=== PATIENT | female | born 1965 | race Two or more races ===

== ENCOUNTER 2019-03-06 06:54 | Outpatient (CLI) | payer OTHER ==
[~2019-03-06] VITALS: Ht 160 cm; Wt 67.1 kg
[2019-03-06] VITALS (8 sets, daily range): BP systolic 94–157; BP diastolic 66–85
[2019-03-06] MEDS ORDERED: LISI10TA2 PO (07:22)
[2019-03-06] MEDS ORDERED: LIDOCAINE WITH 8.4% SOD BICARB 3 ML DISP.SYRIN. ONE (07:49)
[2019-03-06 07:52] LABS: ALBUMIN 3.8 g/dL (3.4-5.0); ALBUMIN/GLOBULIN RATIO 1.1 (1.0-1.7); CALCIUM 8.7 mg/dL (8.5-10.1); CREATININE 0.8 mg/dL (0.6-1.0); GFR 74.5; POTASSIUM 3.8 mmol/L (3.5-5.1); TOTAL BILIRUBIN 0.5 mg/dL (0.2-1.0); TOTAL PROTEIN 7.3 g/dL (6.4-8.2)
[2019-03-06 08:10] LABS: BASO % 1 % (0-3); EOS # 0.2 x10^3/uL (0.0-0.7); EOS % 5 % (0-3); HEMATOCRIT 37.9 % (36.0-47.0); HEMOGLOBIN 13.4 g/dL (12.0-15.5); LYMPH # 2.9 x10^3/uL (1.0-4.8); LYMPH % 66 % (24-48); MEAN CORPUSCULAR HEMOGLOBIN 31 pg (25-35); MEAN CORPUSCULAR HGB CONC 35 g/dL (31-37); MEAN CORPUSCULAR VOLUME 87 fL (79-100); MONO # 0.4 x10^3/uL (0.0-1.1); MONO % 8 % (0-9); NEUT # 0.9 x10^3/uL (1.8-7.7); NEUT % 20 % (31-73); PLATELET COUNT 218 x10^3/uL (140-400); RED BLOOD COUNT 4.33 x10^6/uL (3.50-5.40); RED CELL DISTRIBUTION WIDTH 12.3 % (11.5-14.5); WHITE BLOOD COUNT 4.3 x10^3/uL (4.0-11.0)
[2019-03-06] MEDS ORDERED: MIDAZOLAM HCL/PF 2 MG/2 ML VIAL. ONE (08:15)
[2019-03-06] MEDS ORDERED: fentaNYL PF VIAL 100 MCG/2 ML VIAL ONE (08:16)
[2019-03-06 08:20] LABS: PROTHROMBIN TIME PATIENT 12.7 SEC (11.7-14.0)
[2019-03-06] MEDS ORDERED: LIDOCAINE WITH 8.4% SOD BICARB 3 ML DISP.SYRIN. IJ ONE (08:30)
[2019-03-06] MEDS ORDERED: MIDAZOLAM HCL/PF 2 MG/2 ML VIAL. IV ONE (08:30)
[2019-03-06] MEDS ORDERED: fentaNYL PF VIAL 100 MCG/2 ML VIAL IV ONE (08:30)
--- NOTE | 2019-03-06 08:39 | PDOC ---
MODERATE SEDATION ASSESSMENT RISKS/ALTERNATIVES Risks/Alternatives Risks and alternatives of this type of sedation and procedure discussed with: RISK/ALTERNATIVES: Patient H & P ON CHART H & P H & P on chart and reviewed for co-morbid conditions and appropriate labs. H&P ON CHART: Yes STATUS PREG STATUS ASSESSED: Yes MEDS/ALLERGIES REVIEWED Meds/Allergies Reviewed Medications and Allergies including time and route of recently administered narcotics and sedatives. MEDS/ALLERGIES REVIEWED: Yes ASA RATING ASA RATING: II AIRWAY ASSESSMENT Airway Assessment Airway patency, oral function limitations, presence of caps, crowns, dentures, partials, and ability to extend neck assessed. AIRWAY ASSESSMENT: Yes MALLAMPATI SCORE MALLAMPATI SCORE: II PRE-SEDATION ASSESSMENT PRE-SEDATION ASSESSMENT: Yes LEANNA CALLAHAN MD Mar 06, 2019 08:39
--- NOTE | 2019-03-06 08:40 | PDOC ---
Exam Member Of [employer] Member Of [employer] None Pre-Procedure Diagnosis Pre-Procedure Diagnosis Neutropenia Post-Procedure Diagnosis Post-Procedure Diagnosis Same Procedure Performed Procedure Performed [place] Bx Type of Anesthesia Type of Anesthesia Mod Sed Estimated Blood Loss EBL: 2 Specimens Specimans aspirate and core Drain/Tubes Drains/Tubes samples given to path Condition of Patient Condition of Patient stable Disposition Disposition return to [facility]. expect discharge. LEANNA CALLAHAN MD Mar 06, 2019 08:40
[2019-03-06 13:07] LABS: % ATYL 3 % (0-0); % BANDS 1 % (0-9); % BASOS 1 % (0-3); % EOS 6 % (0-5); % LYMPHS 57 % (24-48); % MONOS 7 % (0-10); % MYELOS 1 % (0-0); % SEGS 24 % (35-66)
[2019-03-06 13:08] LABS: PLT ESTIMATE ADEQUATE (ADEQUATE)
--- NOTE | 2019-03-06 13:52 | RAD ---
CT-guided bone marrow biopsy. 03/06/2019 11:48 AM Indication: Neutropenia Discussion: The risks and benefits of the procedure, including but not limited to, bleeding and infection were discussed patient. Informed consent was obtained. The patient was brought to the CT scanner and placed in the prone position. A timeout procedure was performed. Core Finisher CT imaging of the pelvis demonstrated left ilium amenable to bone marrow biopsy. The overlying soft tissues were prepped and draped using maximum sterile barrier technique. 1% lidocaine without epinephrine was administered for local anesthesia. Under intermittent CT guidance, an OncControl needle was advanced into the bone marrow of the left iliac crest. 2 Aspirates and 1 core biopsy samples were obtained. Samples were delivered to pathology was present at the time of procedure. The needle was removed and manual pressure held to achieve hemostasis. No immediate complications were identified. The procedure was performed under conscious sedation including continuous cardiopulmonary monitoring via dedicated sedation nurse. Sedation time: 20 minutes Impression: Successful CT-guided bone marrow biopsy of the left iliac crest . PQRS Compliance Statement: One or more of the following individualized dose reduction techniques were utilized for this examination: 1. Automated exposure control 2. Adjustment of the mA and/or kV according to patient size 3. Use of iterative reconstruction technique
== END 2019-03-06 09:44 | disposition home or self-care (01) ==
LOC: INTRAD 06:54
PROVIDERS: ATTEND Internal Medicine Hematology & Oncology
DX: D70.9 Neutropenia, unspecified (principal); Z79.01 Long term (current) use of anticoagulants
CPT/HCPCS: 36415; 38222; 77012; 80053; 85025; 85610; 88184; 88185; 88237; 99152; J2250; J3010; 85007

== ENCOUNTER → 2021-02-12 | Outpatient (CLI) | payer OTHER ==
[2019-03-06 09:40] VITALS: BP 102/67
[~2021-02-12] MED LIST: LISI10TA16 PO
--- NOTE | 2021-02-12 13:34 | CARD ---
MR#: [id number] Date of Study: 02/12/2021 Ordering Physician: EDIE MOON, Referring Physician: Fazal GONZALES: Fede Morales [facility] APPROVED REPORT EXAM: Two-dimensional and M-mode echocardiogram with Doppler and color Doppler. Other Information Quality : GoodHR: 57bpm Rhythm : NSR INDICATION Palpitations RISK FACTORS Hypertension 2D DIMENSIONS Left Atrium(2D)3.2 (1.6-4.0cm)IVSd1.0 (0.7-1.1cm) Aortic Root(2D)3.0 (2.0-3.7cm)LVDd4.9 (3.9-5.9cm) LVOT Diameter2.0 (1.8-2.4cm)PWd1.0 (0.7-1.1cm) LVDs3.1 (2.5-4.0cm)FS (%) 36.2 % SV73.9 ml Aortic Valve AoV Peak Joe.121.5cm/sAoV VTI28.7cm AO Peak GR.5.9mmHgLVOT Peak Joe.104.6cm/s AO Mean GR.3mmHgAVA (VMAX)2.81cm2 Mitral Valve MV E Sgwscpvs82.7cm/sMV E Peak Gr.4mmHg MV DECEL [id number] A Vvcvukqf988.0cm/s MV E Mean Gr.2mmHgE/A Ratio0.7 Pulmonary Valve PV Peak Nmmofqio32.2cm/s Tricuspid Valve TR P. Xvugvvjy186rx/sTR Peak Gr.22mmHg Pulmonary Vein S1 Luxfwanw81.6cm/sD2 Bfvkssfa23.0cm/s LEFT VENTRICLE The left ventricle is normal size. There is normal left ventricular wall thickness. The left ventricu lar systolic function is normal and the ejection fraction is within normal range. LV ejection fractio n of 50 to 55%. There is normal LV segmental wall motion. No left ventricle thrombus noted on this st udy. There is no ventricular septal defect visualized. There is no left ventricular aneurysm. There i s no mass noted in the left ventricle. RIGHT VENTRICLE The right ventricle is normal size. There is normal right ventricular wall thickness. The right ventr icular systolic function is normal. ATRIA The left atrium size is normal. The right atrium size is normal. AORTIC VALVE The aortic valve is normal in structure and function. The aortic valve is tri-cuspid. Doppler and Col or Flow revealed no significant aortic regurgitation. There is no significant aortic valvular stenosi s. There is no aortic valvular vegetation. MITRAL VALVE The mitral valve is normal in structure and function. There is no evidence of mitral valve prolapse. There is no mitral valve stenosis. Doppler and Color-flow revealed trace to mild mitral regurgitation . TRICUSPID VALVE The tricuspid valve is normal in structure and function. Doppler and Color Flow revealed trace tricus pid regurgitation. There is no tricuspid valve prolapse or vegetation. There is no tricuspid valve st enosis. PULMONIC VALVE The pulmonary valve is normal in structure and function. Doppler and Color Flow revealed no pulmonic valvular regurgitation. There is no pulmonic valvular stenosis. GREAT VESSELS The aortic root is normal in size. The ascending aorta is normal in size. The pulmonary artery is nor mal. The IVC is normal in size and collapses >50% with inspiration. PERICARDIAL EFFUSION There is no pleural effusion. There is no evidence of significant pericardial effusion. Critical Notification Critical Value: No <Conclusion> The left ventricle is normal size. The left ventricular systolic function is normal and the ejection fraction is within normal range. LV ejection fraction of 50 to 55%. Doppler and Color Flow revealed no significant aortic regurgitation. There is no significant aortic valvular stenosis. Doppler and Color-flow revealed trace to mild mitral regurgitation. Doppler and Color Flow revealed trace tricuspid regurgitation. Signed by : Paul Quiñonez MD Electronically Approved : 02/12/2021 13:33:45
== END ==
LOC: ECHO 07:45
PROVIDERS: ATTEND Internal Medicine Cardiovascular Disease
DX: I34.0 Nonrheumatic mitral (valve) insufficiency (principal); R00.2 Palpitations; I10 Essential (primary) hypertension
CPT/HCPCS: 93306